=== PATIENT | female | born 1945 | race Caucasian/White ===

== ENCOUNTER 2024-06-19 09:54 | Day surgery (SDC) | payer MEDICARE, OTHER, SELFPAY ==
[2024-06-07 09:24] VITALS: BMI 36.0
[2024-06-19] VITALS (24 sets, daily range): BP systolic 104–157; BP diastolic 51–107
[2024-06-19] MEDS: NSS 500 IV ×2 (10:51→23:04)
--- NOTE | 2024-06-19 16:55 | ITS.CL.ABL ---
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
Ablation
Procedure Report:
ELECTROPHYSIOLOGIC STUDY AND POSSIBLE ABLATION
DATE: 06/19/24
Primary Care Provider: Dr Troy Irwin
INDICATION:
Symptomatic Atrial Fibrillation.
Paroxysmal
HISTORY: See H and P.
Symptomatic AF, poorly controlled with attempted medical therapy. Prior PVI (Cryo) in 2017 and RF ablation in 2021. Subsequent permanent pacemaker implantation (2021) which is demonstrated recurrent atrial fibrillation with increasing burden and
increasing symptoms for which she is currently on sotalol 120 mg twice daily which is providing improved rhythm and symptom control but she strongly wishes to avoid ongoing antiarrhythmic drug therapy.
HAS-BLED: 1
Age
CHADSVASc: 3
Age
F
PRESENTING RHYTHM: SR
ANTICOAGULATION: Eliquis 5 mg twice daily
ANTIARRHYTHMIC DRUG: Sotalol 120 mg twice daily
'TIME-OUT': called and confirmed.
SEDATION/ANESTHESIA: provided via the anesthesia department using general anesthesia.
PROCEDURE:
Ultrasound Guidance performed by hi was utilized for femoral venous Vascular Access b/l.
A decapolar CS catheter was placed within the CS for mapping and pacing.
The intracardiac ultrasound catheter was positioned in the RA for continuous intracardiac ultrasound imaging.
Heparin bolus and infusion to target ACT at 300 -350 seconds was administered. Transseptal puncture was performed. This entailed advancing a sheath with dilator into the superior vena cava and withdrawing both (monitoring intracardiac ultrasound,
fluoroscopy and tip pressure) with the tip oriented toward the atrial septum. The fossa ovalis was engaged (indicated by sudden displacement of the sheath tip as well as tenting of the fossa seen on intracardiac ultrasound).
Ac[employer] transseptal system was used. Left atrial catheter position was confirmed by echocardiographic imaging, pressure monitoring and fluoroscopy. The sheath was advanced over the dilator and positioned in the left atrium.
The multipolar mapping catheter was initially positioned through the transseptal sheath for high density mapping.
Geometry and voltage mapping was performed using the [employer] Solar multipolar grid catheter. Ensite-X was utilized for three-dimensional electroanatomical mapping.
A 3-D map was created using [employer]-Kwelia in Voxel mode. A 3-D reconstructed CT image was compared to the 3-D Navex map to assist in anatomic evaluation, mapping and ablation.
Mapping demonstrated reconnection at the katerina between the left superior and left inferior pulmonary vein posteriorly. During mapping of the posterior wall of the left atrium there are multiple runs of nonsustained left atrial tachycardia.
The [employer] Pulse Select PFA catheter and system was used for cardiac ablation. Catheter positioning was guided and confirmed using both I.C.E. and fluoroscopy.
First energy was delivered towards the katerina between the left superior and left inferior pulmonary vein providing electrical isolation then additional ablation lesion set was performed to the posterior wall of the left atrium to isolate the
posterior wall.
Remapping with the [employer] multipolar grid catheter found that all PVPs were eliminated at each vein demonstrating entrance block. Also pacing from the multipolar mapping catheter around the the circumference of the ostia was performed at 10 ma and
2.0 msec output to assess for exit block. This demonstrated electrical isolation at each of the pulmonary vein ostia (LSPV, LIPV, RSPV, RIPV). There is also entrance and exit block at the LA posterior wall.
Programmed electrostimulation failed to induce any sustained arrhythmias.
There is no change in fluoroscopic appearance of the leads.
Additionally interrogation of the dual-chamber permanent pacemaker and lead system finds normal function of the generator and lead system. No reprogramming was performed.
I.C.E. :
Pre-Ablation Post-Ablation
LVEF: 55 % 55 %
WMA: none none
Pericardial effusion: Trace posterior Trace posterior
COMPLICATIONS:
None
SUMMARY:
- Mapping and ablation to re-isolate the PVs
- Additional AF ablation set after PVI (LA post wall).
- 3-D Electroanatomical Mapping
- Intracardiac Ultrasound
Post ablation, I discussed today's findings and results with the patient's .
RECOMMENDATIONS:
- Observe in monitored bed and consider for discharge to home later today.
- Maintain oral anticoagulation.
- Continue sotalol 120 mg twice daily and as an outpatient if she continues to maintain sinus rhythm via device diagnostics we can consider discontinuation of antiarrhythmic drug therapy
- Office visit with me in 3 months.
Copy to: Dr Troy Irwin
--- NOTE | 2024-06-19 17:57 | PTCARENOTE ---
Pt oozed from right groin. Dressing discovered saturated on exam by Shu VENTILATED RIB FITTER. Pressure held for 5 minutes and site redressed by VENTILATED RIB FITTER. Groin care /safety with legs straight and holding pressure on site with coughing, and keeping head on pillow. Spouse at
the bedside, witness to event. Teachback teaching verbalized by both. Pt is forgetful however and tends to lift head off pillow when communicating and she's needing frequent reinforcement.
--- NOTE | 2024-06-19 18:02 | W.PN.UPDATE ---
Update Note
Progress Note Update
76 yo WF s/p PVI (same day). She denies cp, sob, R fem site with mod ooze after HOB 30deg, manual pressure held and hemostasis achieved, EKG Apaced, no ectopy. She will resume Eliquis tonight at 10pm. She will remain on Sotalol. Activity
restrictions reviewed. She will f/u Dr. Larkin in 3 mo. She will d/c home after 730pm if groin stable and able to void.
SUMMARY:
- Mapping and ablation to re-isolate the PVs
- Additional AF ablation set after PVI (LA post wall).
- 3-D Electroanatomical Mapping
- Intracardiac Ultrasound
--- NOTE | 2024-06-19 19:30 | PTCARENOTE ---
Rec'd pt from [facility] tender restoration labor at 1915, Apaced on venetian blind machine operator with VSS and AAO*3. Pt denied any pain or discomfort at this time and with R femoral vein dressing CDI. Pt agreed to report any bleeding immediately and oriented to room. Pt resting with
call davis in reach.
[2024-06-19] MEDS: BETAPACE 120 MG PO (20:10)
[2024-06-19] MEDS: CARDIZEM 125 IV (20:50)
--- NOTE | 2024-06-19 21:00 | PTCARENOTE ---
Pt converted to AFIB with RVR at 19:59 with HR in the 150's confirmed by EKG. BP 134/88 and 99% on room air. Pt reported feel palpitations in her chest but no other pain. DR Alejandro notified and Cardizem ordered to start at 5mg per hour. Pt put
on 2L of oxygen for comfort. Pt regular dose of sotalol as advised by DR Alejandro. Pt convert back to APaced rhythm at 20:57 pt reported relief from palpitations and rhythm confirmed by EKG. Dr Alejandro notified and continued Cardizem gtt. Pt
continues on banking manager in APaced rhythm with VSS. See MAR and flowchart for further assessment. Pt resting with call davis in reach
[2024-06-19] MEDS: ELIQUIS 5 MG PO (23:03)
[2024-06-20 03:00] VITALS: BP 109/93
[2024-06-20 03:10] LABS: Hemoglobin 16.5 g/dL (12.0-16.0); Mean Corp Hgb Conc. 33.7 g/dL (33.0-37.0); Mean Corpuscular Hgb 30.3 pg (27.0-31.0); Mean Corpuscular Volume 90.1 fL (81.0-99.0); Mean Platelet Volume 10.9 fL (7.4-10.4); Platelet Count 193 10^3/uL (130-400); Red Blood Cell Count 5.44 10^6/uL (4.20-5.40); Red Cell Dist. Width 16.8 % (11.5-14.5); White Blood Cell Count 4.5 10^3/uL (4.8-10.8)
[2024-06-20 03:27] LABS: Blood Urea Nitrogen 14 mg/dl (7-17); Calcium 8.5 mg/dl (8.4-10.2); Carbon Dioxide 20 mmol/L (22-30); Chloride 106 mmol/L (98-107); Estimated Creatinine Clearance 77 ml/min; Glucose 135 mg/dl (70-99); Potassium 5.1 mmol/L (3.5-5.1); Sodium 140 mmol/L (135-145); eGFR > 60.00
[2024-06-20 03:31] VITALS: BP 109/93
[2024-06-20] MEDS: TYLENOL 650 MG PO (04:50)
[2024-06-20 06:00] VITALS: BMI 35.2
--- NOTE | 2024-06-20 07:43 | W.PN.CARDCBS ---
Addendum entered and electronically signed by Anthony Bradley MD 06/20/24 10:45:
Patient seen, interviewed and examined by me.
Well-appearing, no acute distress
Regular rate and rhythm with normal S1 and S2, no S3 no S4. There is a grade 1/6 apical holosystolic murmur and no rubs. PMI is normally placed.
Lungs are clear to auscultation bilaterally without wheezes rales or rhonchi.
Abdomen soft nontender nondistended with normoactive bowel sounds
Extremities show trace pretibial edema bilaterally no clubbing or cyanosis.
Neurologic exam is grossly nonfocal.
Review of telemetry does demonstrate approximately hour long episode of an atrial tachycardia with rapid ventricular rate of up to about 140 bpm. She was initially placed on intravenous Cardizem but spontaneously converted to sinus rhythm. I
discussed with her that there may be some recurrent arrhythmias particular in the early phase post ablation. We plan to maintain sotalol 120 mg twice daily and assess rhythm control based both on symptoms and her pacemaker diagnostics. She will
maintain oral anticoagulation.
All of her questions have been answered. She is stable for discharge to home today.
Original Note:
Today's Communication / Plan
-
Continue eliquis, sotalol
followup w/Dr. Bradley
home today
Impression / Plan
-
PCP: Troy Irwin,
CDY: Trae Bradley MD
78 y/o, PMH symptomatic AF, poorly controlled with attempted medical therapy. Prior PVI (Cryo) in 2017 and RF ablation in 2021. Subsequent permanent pacemaker implantation (2021) which is demonstrated recurrent atrial fibrillation with increasing
burden and increasing symptoms for which she is currently on sotalol 120 mg twice daily which is providing improved rhythm and symptom control but she strongly wishes to avoid ongoing antiarrhythmic drug therapy. [id number]=5, maintained on
eliquis.
S/P PFA. Groin bleed in recovery post procedure, contained with manual compression and bedrest. Decision was made to stay for overnight observation.
IMPRESSION:
Recurrent symptomatic AF, prior PVI x2 (2021)
S/P PFA, 06/19/24
SSS, s/p PPM ([id number])
NARESH/CPAP intolerant
Anxiety
PLAN:
Tele- Apaced w/brief AF overnight
Right groin site stable
resume eliquis, continue sotalol
Followup with Dr. rBadley as scheduled
home today
Progress Note - Hospital Secretary
Subjective
Date of Service: June 20, 2024
Denies cp/palps/dyspnea
oob ambulating
groin site without pain
Objective
Labs:
06/20/24 01:57
06/20/24 01:57
Labs
Hgb 16.5 g/dL (12.0-16.0) H 06/20/24 01:57
Hct 49.0 % (37.0-47.0) H 06/20/24 01:57
Plt Count 193 10^3/uL (130-400) 06/20/24 01:57
Sodium 140 mmol/L (135-145) 06/20/24 01:57
Potassium 5.1 mmol/L (3.5-5.1) 06/20/24 01:57
BUN 14 mg/dl (7-17) 06/20/24 01:57
Creatinine 0.6 mg/dL (0.6-1.0) 06/20/24 01:57
Glucose 135 mg/dl (70-99) H 06/20/24 01:57
Vital Signs and I&O:
Vital Signs
Temp Pulse Resp BP Pulse Ox
97.8 F 60 16 109/93 95
06/20/24 03:00 06/20/24 05:00 06/20/24 03:00 06/20/24 03:31 06/20/24 03:31
Vital Signs
Temp Pulse Resp BP Pulse Ox
97.8 F 60 16 109/93 95
06/20/24 03:00 06/20/24 05:00 06/20/24 03:00 06/20/24 03:31 06/20/24 03:31
Intake & Output
06/18/24 06/19/24 06/20/24 06/21/24
06:59 06:59 06:59 06:59
Intake Total 940 / 940
Balance 940 / 940
Physical Exam
Physical Exam
AAOx3, MAEE 5/5
RRR S1 S2 no murmurs
CTA bilat, non labored
soft abd, + bs
right groin site with mild ecchymosis, non tender, no ht/bleeding
bilat extremities w/palpable distal pulses, no edema
--- NOTE | 2024-06-20 07:45 | PTCARENOTE ---
Pt out of bed, wandering in room, pulled out IV sites. Med sitter placed in room for safety. Will continue to monitor.
[2024-06-20 07:55] VITALS: BP 142/75
[2024-06-20] MEDS: BETAPACE 120 MG PO (08:25)
[2024-06-20] MEDS: ELIQUIS 5 MG PO (08:26)
--- NOTE | 2024-06-20 09:15 | PTCARENOTE ---
Pt AOx3, confused intermittently. Assist x1 OOB. Med sitter in place for safety. Paced on tele monitor, VSS. Call davis within reach.
--- NOTE | 2024-06-20 10:02 | W.DS.TRANS ---
DC Summary - Loan Coordinator
-
Discharge Instructions:
Discharge Diagnosis/Procedures AFib, s/p ablation
Diet Low Cholesterol
Driving Restrictions No driving for 24 hours
Instructions:
Stand-Alone Forms: DC Instructions- Cath/EP Lab
Changes to Home Medications: No
Discharge Medications:
DC Medications w/original date entered in [facility]
apixaban 5 mg tablet (Eliquis) 5 mg PO BID Blood clot prevention/tx 08/18/21
furosemide 20 mg tablet (Lasix) 20 mg PO DAILYPRN PRN swelling 08/18/21
propranolol 20 mg tablet 20 mg PO DAILYPRN PRN palpitations 12/09/21
acetaminophen 500 mg tablet 500 mg PO Q6H PRN pain 04/05/22
sotalol 120 mg tablet 120 mg PO BID 06/19/24
Home Medication Changes
Pending Results: No
--- NOTE | 2024-06-20 10:20 | CM ---
Chart reviewed. Patient is independent of ADLS, lives with her in a 2 [address], 0 EVIE, 0 DME. Plan is for the patient to return home
== END 2024-06-20 10:05 | disposition home or self-care (01) ==
LOC: CATH 09:54
PROVIDERS: Nurse Practitioner; ATTENDING PHYSICIAN Internal Medicine Cardiovascular Disease; FAMILY PHYSICIAN Family Medicine
DX: I48.0 Paroxysmal atrial fibrillation (principal); Z95.0 Presence of cardiac pacemaker; I49.5 Sick sinus syndrome; G47.33 Obstructive sleep apnea (adult) (pediatric); E66.9 Obesity, unspecified; R07.9 Chest pain, unspecified; R00.2 Palpitations; R06.02 Shortness of breath; Z79.899 Other long term (current) drug therapy; Z79.01 Long term (current) use of anticoagulants; Z88.0 Allergy status to penicillin; Z88.6 Allergy status to analgesic agent; Z91.040 Latex allergy status
CPT/HCPCS: C1892; C1730; C1894; 80048; 83735; 85027; 85347; 93005; 93656; 93657; C1732; C1733; C1760; C1766

== ENCOUNTER → 2024-08-24 13:45 | Outpatient (REF) | payer MEDICARE, OTHER, SELFPAY | LOC: HWRAD 13:45 | PROVIDERS: ATTENDING PHYSICIAN Pain Medicine Interventional Pain Medicine; FAMILY PHYSICIAN Family Medicine | DX: M54.16 Radiculopathy, lumbar region (principal) | CPT/HCPCS: 72131 ==